=== PATIENT | female | born 1945 | race Caucasian/White ===

== ENCOUNTER 2019-04-03 16:22 | Inpatient (IN) | payer MEDICARE, MEDICAID ==
[~2019-04-03] VITALS: Ht 160 cm; Wt 108.2 kg
[2019-04-03] VITALS (218 sets, daily range): BP systolic 106; BP diastolic 55; PULSE 69; TEMP 98.4; O2SAT 90–98
[~2019-04-03 16:22] MED LIST: ALLERGY MED; ALLERGY RELIEF10 M1 PO; ALLERGY1 TAB SL; ATORVASTATIN; BENADRYL25 M2 PO; BENAZEPRIL PO; EPA/GLA1 SGL PO; FLONASE NASAL S16 GM NS; FLUOXETINE20 MG PO; HTN MED; HYDR PO; LIPITOR 10MG10 MG PO; LORTAB 5/500 501 TAB PO; MOBIC7.5 MG PO; PROZAC 10MG10 MG PO; PROZAC10 MG PO; THIOTHIXENE5 MG PO; ULTRAM 50MG TAB50 MG PO; VERELAN180 MG PO; ZITHROMAX Z PA250 MG PO
[2019-04-03 17:11] LABS: BASO # 0.1 (0.0-0.2); BASO % 0.7 % (0.0-2.0); EOS # 0.1 (0.0-0.7); EOS % 1.2 % (0-4.0); GRAN % 68.5 % (42.2-75.2); HEMOGLOBIN 11.6 g/dl (12.5-16.0); LYMPH # 1.4 (1.2-3.4); LYMPH % 19.6 % (20.0-51.0); MEAN CELL VOLUME 89 fl (80.0-100.0); MEAN CORPUSCULAR HEMOGLOBIN 29 pg (27.0-31.0); MEAN CORPUSCULAR HGB CONC 33 g/dl (33.0-37.0); MEAN PLATELET VOLUME 9.9 fl (7.4-10.4); MONO # 0.7 (0.1-0.6); MONO % 9.7 % (1.7-9.3); PLATELET COUNT 251 K/mm3 (130-400); RED BLOOD COUNT 4.01 M/mm3 (4.10-5.30); REDCELL DISTRIBUTION WIDTH-CV 12.8 % (11.5-14.5)
[2019-04-03 17:16] LABS: ALBUMIN 3.6 gm/dL (3.5-5.0); BILIRUBIN,TOTAL 0.3 mg/dL (0.0-1.0); C-REACTIVE PROTEIN 4.8 mg/dL (0.0-0.9); CALCIUM 9.2 mg/dL (8.4-10.2); CREATININE, serum 0.86 (0.52-1.25); POTASSIUM 3.9 mmol/L (3.4-5.0); TOTAL PROTEIN 6.8 gm/dL (6.4-8.2)
[2019-04-03 17:22] LABS: HEMATOCRIT 35.7 % (37.0-47.0)
[2019-04-03 17:26] LABS: TROPONIN-I 0.113 ng/mL (0.000-0.035)
[2019-04-03 17:30] LABS: COLLECTION METHOD CLEAN CATCH
[2019-04-03] MEDS ORDERED: PROZAC 20MG20 MG (17:42)
[2019-04-03 17:43] LABS: MUCOUS Present /lpf; PH 6 (5-8); SQUAMOUS EPITHELIAL 0-2 /hpf; URINE APPEARANCE Hazy; URINE BACTERIA Rare /hpf; URINE BILIRUBIN Negative (NEGATIVE); URINE BLOOD Negative (NEGATIVE); URINE COLOR Amber; URINE GLUCOSE Negative (NEGATIVE); URINE KETONE Negative (NEGATIVE); URINE LEUKOCYTE ESTERASE 2+ (NEGATIVE); URINE NITRATE Negative (NEGATIVE); URINE PROTEIN(semi-quant) 1+ (NEGATIVE); URINE UROBILINOGEN >=4.0 mg/dL (NEGATIVE)
[2019-04-03] MEDS ORDERED: ZESTRIL 5MG5 MG (17:43)
[2019-04-03] MEDS ORDERED: RISPERDAL2 MG (17:43)
[2019-04-03] MEDS ORDERED: PROZAC40 MG (17:45)
[2019-04-03] MEDS ORDERED: RISPERDAL4 MG (17:46)
[2019-04-03 17:48] LABS: INR 1.2 (0.8-3.0); PROTHROMBIN TIME 13.2 SECONDS (9.7-12.8)
[2019-04-03] MEDS ORDERED: ZESTORETIC 12.51 TAB (17:48)
--- NOTE | 2019-04-03 20:59 | NUR ---
PT IS A&O X4. PT LIVES AT HOME ALONE. PT STATES HER EMERGENCY CONTACT AND SUPPORT SYSTEM IS GRECIA AT [facility] WHO IS HER INSTALLATION DRAFTER. PT STATES SHE HAS NO FAMILY FOR A SUPPORT SYSTEM. PT STATES SHE CAME TO ER TODAY TO FINALLY FIGURE OUT WHY SHE WAS HAVING INCREASED PAIN IN HER HERNIA WHEN SHE ATE. PT IS NOT COMPLAINING OF ANY ABD/HERNIA PAIN AT PRESENT, BUT IS C/O CONSTANT PELVIC PAIN RATING 5/10 DESCRIBED "SQUEEZING PRESSURE". PT STATES IT HAS BEEN ONGOING FOR OVER A YEAR AND WORSE IN THE PAST 4 MONTHS, BUT HAS AN APPOINTMENT NEXT FRIDAY WITH HER PRIMARY FOR A PELVIC EXAM. PT DENIES ODOR OR DISCHARGE. PT DOES HAVE A LESION ON RIGHT HAND THAT IS ASYMMETRICAL, PINK IN COLOR, AND RAISED. THE LESION HAS BEEN THERE FOR >1 YR. PT STATES HER PRIMARY GAVE HER OINTMENT TO APPLY TO THE AREA.
[2019-04-04] VITALS (719 sets, daily range): BP systolic 100–139; BP diastolic 60–84; PULSE 67–88; TEMP 97.6–99.1; O2SAT 78–100
--- NOTE | 2019-04-04 00:01 | NUR ---
CALLED LAB TO SEE WHEN THEY WOULD BE ARRIVING FOR LAB DRAW. WAS INFORMED 5 MINUTES. HEPARIN GTT PAUSED.
--- NOTE | 2019-04-04 00:13 | NUR ---
CALLED LAB TO SEE WHEN THEY WOULD COME TO DRAW LAB. WAS INFORMED IT WOULD BE APPROXIMATELY 5 MINUTES. HEPARIN GTT RESUMED AND INFORMED LAB TO CALL WHEN THEY ARE ON THE WAY.
[2019-04-04 04:59] LABS: BASO % 0.6 % (0.0-2.0); EOS # 0.2 (0.0-0.7); EOS % 2.2 % (0-4.0); GRAN # 4.2 (1.4-6.5); GRAN % 63.2 % (42.2-75.2); HEMATOCRIT 34.2 % (37.0-47.0); HEMOGLOBIN 11.1 g/dl (12.5-16.0); LYMPH # 1.6 (1.2-3.4); LYMPH % 23.8 % (20.0-51.0); MEAN CELL VOLUME 89 fl (80.0-100.0); MEAN CORPUSCULAR HEMOGLOBIN 29 pg (27.0-31.0); MEAN CORPUSCULAR HGB CONC 33 g/dl (33.0-37.0); MEAN PLATELET VOLUME 9.8 fl (7.4-10.4); MONO # 0.7 (0.1-0.6); MONO % 10.1 % (1.7-9.3); PLATELET COUNT 248 K/mm3 (130-400); RED BLOOD COUNT 3.85 M/mm3 (4.10-5.30); REDCELL DISTRIBUTION WIDTH-CV 12.8 % (11.5-14.5)
[2019-04-04 05:10] LABS: CALCIUM 9.1 mg/dL (8.4-10.2); CHOLESTEROL RISK RATIO 4.8; CREATININE, serum 0.74 (0.52-1.25)
[2019-04-04 05:23] LABS: TROPONIN-I 0.092 ng/mL (0.000-0.035)
--- NOTE | 2019-04-04 07:53 | NUR ---
Shift assessment complete at this time. Plan of care reviewed at bedside with patient. Additional time taken to address any other needs or concerns. Vitals stable at this time. Denies pain or any other discomfort. Bed in low position, call light within reach. Heparin gtt continues per order. Will continue to monitor.
--- NOTE | 2019-04-04 12:00 | NUR ---
Pt resting in bed. Reports slightly increasing pelvic pain that is cramp-like in nature. Vitals stable. Pt denies any other complaints or discomfort. Will contact provider for orders regarding pain medication as none are ordered in the EMAR. Bed in low position, will continue to monitor, call light within reach.
--- NOTE | 2019-04-04 12:34 | NUR ---
Patient lives at home alone in [place], [place] and plans to return home upon discharge. Patient is mostly independent with daily living activities however, she does have a history of mental health diagnosis including schizophrenia and depression and she has a [employer] Coordinator (Penny) who is supportive of the patient's care/needs. Patient has no durable medical equipment anticipated needs, her primary care physician is Bright Olson, her pharmacy is [facility], and she does have advance directives completed. Patient's brother (Kaylie) is supportive as needed. No further needs at this time and social research assistant will follow as needed.
--- NOTE | 2019-04-04 16:00 | NUR ---
Pt resting comfortably in bed. Denies pain or any other discomfort. Vitals stable at this time. Bed in low position, call light within reach.
--- NOTE | 2019-04-04 18:55 | NUR ---
Bedside report received from Anish GOINS.
--- NOTE | 2019-04-04 19:06 | NUR ---
Bedside report given to BRISEIDA Reilly.
[2019-04-05] VITALS (376 sets, daily range): BP systolic 97–177; BP diastolic 53–88; PULSE 66–76; TEMP 97.6–98.7; O2SAT 54–99
--- NOTE | 2019-04-05 00:30 | NUR ---
Pt resting in bed at this time. Denies any needs or wants.
--- NOTE | 2019-04-05 06:45 | NUR ---
Pt assisted to laborer shipyard for procedure assisted by laborer shipyard RN. Consent signed.
--- NOTE | 2019-04-05 07:15 | NUR ---
Report provided to Jing Noel RN. Pt not currently on the unit.
--- NOTE | 2019-04-05 07:22 | NUR ---
SEE MERGE REPORT FOR MEDICATION ADMINISTRATION TIMES WELL INTRA/POST SEDATION ASSESSMENTS.
--- NOTE | 2019-04-05 08:05 | NUR ---
Report received from Elmer, analytical lab analyst RN. Pt arrived to ICU bed 3 via bed. Pt A/Ox4. Denies any pain. Right wrist with TR band on. No bleeding, no hematoma, right radial pulse +2. Pt on 4L/NC. Discussed plan of care r/t post cardiac cath checks. Pt verbalized understanding. Call light in reach.
--- NOTE | 2019-04-05 09:22 | NUR ---
Doctor inquired if SW could find out which provide patient sees at [facility]. SW contacted [place] and they reported that patient is seen by Jud Griffin and has a scheduled appointment for 04/14. SW reported this information back to nurse and doctor.
[2019-04-05] MEDS ORDERED: ZESTRIL 5MG5 MG PO (09:29)
[2019-04-05] MEDS ORDERED: HCTZ12.5TAB PO (09:30)
[2019-04-05] MEDS ORDERED: RISPERDAL2 MG PO (09:31)
[2019-04-05] MEDS ORDERED: ASPIRIN 81M81 MG/TA2 PO (09:34)
[2019-04-05] MEDS ORDERED: TOPROL XL 25MG25 MG PO (10:53)
[2019-04-05] MEDS ORDERED: PRINIVIL2.5 MG PO (10:56)
--- NOTE | 2019-04-05 11:22 | NUR ---
3cc air taken out of right wrist TR band. No bleeding from radial site.
--- NOTE | 2019-04-05 11:30 | NUR ---
2 cc of air taken out of right TR band. Right radial site soft, no bleeding. VSS.
--- NOTE | 2019-04-05 11:46 | NUR ---
3cc of air taken out of right TR band. No bleeding form right radial site. Pt denies any pain. VSS.
--- NOTE | 2019-04-05 12:08 | NUR ---
3 cc of air taken out of right TR band. No bleeding from right radial site, area soft.
--- NOTE | 2019-04-05 12:25 | NUR ---
3 cc of air taken out of right TR band. No bleeding, area soft on right radial site.
--- NOTE | 2019-04-05 12:57 | NUR ---
2cc of air taken out of right TR band. No bleeding, area soft. VSS.
--- NOTE | 2019-04-05 14:00 | NUR ---
Right radial TR band off. Radial site covered with bandaid. NO bleeding or hematoma noted from site.
--- NOTE | 2019-04-05 14:30 | NUR ---
Discharged instructions, med list, follow up appointments, and holter monitor discussed with pt. Pt verbalized understanding and discharge papers signed by pt. Patience from RT in room to apply the holter monitor. Pt called for ride home.
--- NOTE | 2019-04-05 14:45 | NUR ---
Pt discharged from ICU. Pt left unit via WC to ER entrance. Pt's ride at entrance to pick pt up.
== END 2019-04-05 14:45 | disposition home or self-care (01) | DRG 282 ==
LOC: COL.ER 16:22 → ICU 18:08
PROVIDERS: Emergency Medicine; Nurse Practitioner; ADMIT Hospitalist
PROC: B2111ZZ Fluoroscopy of Multiple Coronary Arteries using Low Osmolar Contrast (ICD-10-PCS; principal; 2019-04-05)
PROC: 4A023N7 Measurement of Cardiac Sampling and Pressure, Left Heart, Percutaneous Approach (ICD-10-PCS; principal; 2019-04-05)
DX: I21.4 Non-ST elevation (NSTEMI) myocardial infarction (principal); R06.02 Shortness of breath; I10 Essential (primary) hypertension; E78.5 Hyperlipidemia, unspecified; F20.9 Schizophrenia, unspecified; E66.9 Obesity, unspecified; M79.604 Pain in right leg
CPT/HCPCS: 99223-AI; 99239; A4216; J0696; J1644; J2250; J3010; Q9967

== ENCOUNTER 2019-04-26 14:52 | Inpatient (IN) | payer MEDICARE, MEDICAID ==
[~2019-04-26] VITALS: Ht 162.6 cm; Wt 103.3 kg
[~2019-04-26 14:52] MED LIST changes: +ASPIRIN 81M81 MG/TA2 PO; +HCTZ12.5TAB PO; +PRINIVIL2.5 MG PO; +PROZAC 20MG20 MG; +PROZAC40 MG PO; +RISPERDAL2 MG; +RISPERDAL2 MG PO; +RISPERDAL4 MG; +TOPROL XL 25MG25 MG PO; +ZESTORETIC 12.51 TAB; +ZESTRIL 5MG5 MG; +ZESTRIL 5MG5 MG PO
[2019-04-26 15:34] LABS: BASO % 0.5 % (0.0-2.0); EOS % 0.3 % (0-4.0); GRAN # 6.3 (1.4-6.5); GRAN % 72.5 % (42.2-75.2); HEMOGLOBIN 10.7 g/dl (12.5-16.0); LYMPH # 1.4 (1.2-3.4); MEAN CELL VOLUME 88 fl (80.0-100.0); MEAN CORPUSCULAR HEMOGLOBIN 28 pg (27.0-31.0); MEAN CORPUSCULAR HGB CONC 32 g/dl (33.0-37.0); MEAN PLATELET VOLUME 9.8 fl (7.4-10.4); MONO # 0.9 (0.1-0.6); MONO % 10.4 % (1.7-9.3); PLATELET COUNT 318 K/mm3 (130-400); RED BLOOD COUNT 3.77 M/mm3 (4.10-5.30); REDCELL DISTRIBUTION WIDTH-CV 13.2 % (11.5-14.5)
[2019-04-26 15:36] LABS: HEMATOCRIT 33.2 % (37.0-47.0)
[2019-04-26 15:48] LABS: ALBUMIN 3.7 gm/dL (3.5-5.0); BILIRUBIN,TOTAL 0.4 mg/dL (0.0-1.0); C-REACTIVE PROTEIN 7.2 mg/dL (0.0-0.9); CALCIUM 9.5 mg/dL (8.4-10.2); CREATININE, serum 0.7 (0.52-1.25); POTASSIUM 4.4 mmol/L (3.4-5.0)
[2019-04-26 15:57] LABS: TROPONIN-I 0.015 ng/mL (0.000-0.035)
[2019-04-26 17:14] LABS: INR 1.2 (0.8-3.0); PROTHROMBIN TIME 13.6 SECONDS (9.7-12.8)
[2019-04-26 17:17] LABS: PARTIAL THROMBOPLASTIN TIME 26.3 SECONDS (26.0-37.0)
--- NOTE | 2019-04-26 17:42 | NUR ---
received report from BRISEIDA Rodriguez.
--- NOTE | 2019-04-26 17:54 | NUR ---
pt arrive to room 307 via wheelchair.pt oriented to room.
[2019-04-26] MEDS ORDERED: PRILOSEC 20MG20 MG PO (18:01)
[2019-04-26] MEDS ORDERED: TYLENOL 500MG500 MG PO (18:03)
[2019-04-26 18:05] VITALS: BP 132/76; PULSE 80; TEMP 97.7
[2019-04-26 19:07] VITALS: BP 136/91; PULSE 79; TEMP 97.4
[2019-04-26 19:10] VITALS: BP 106/66; PULSE 97; TEMP 98
--- NOTE | 2019-04-26 19:22 | NUR ---
Assessment complete.patient awake,a/ox3.denies pain or discomfort at this time.LSCTA.right AC INT CDI.vss.pt on room air.denies SOB.d-dimer elevated.pulses palpable,abd soft and non tender to touch.BS active.health promoter equal.patient denies any other concerns at this time.will continue to monitor.call light in reach
--- NOTE | 2019-04-26 19:25 | NUR ---
report given to BRISEIDA Escalona.
--- NOTE | 2019-04-26 22:38 | NUR ---
Patient assessed around 2029. Denied having pain and discomfort. Alert and oriented, and able to make needs known. NS started and running at 75 ml/hr to peripheral IV to right AC. Site is without redness, warmth, swelling, and pain. Coban placed around area to stop for occluding. LS CTA. Denies having SOB and dyspnea. Denies chest pain. HRR. BSAx4. Non pitting edema to BLE. Voices no needs or concerns at this time. Resting in bed, laying awake in bed trying to sleep at this time. Call light is within reach.
[2019-04-26 23:26] VITALS: BP 137/79; PULSE 79; TEMP 98
[2019-04-27 03:15] VITALS: BP 136/81; PULSE 80; TEMP 98.6
--- NOTE | 2019-04-27 03:37 | NUR ---
Patient has been concerned about her bowels. Took prune juice, which has not helped patient have a bowel movement yet. Reports last BM was yesterday. BSAx4. Abdomen round, soft and non-tender. States she feels bloated. NS continues to run to IV site in right AC at 75 ml/hr per orders. Continues to deny having chest pain and SOB. Remains above 92% on room air. Patient has been awake most of the night, but trying to get some sleep. Voices no other needs or concerns at this time. Call light is within reach.
--- NOTE | 2019-04-27 03:45 | NUR ---
Patient had a large, soft formed, brown BM. Reports she is no longer feelings bloated and stomach is feeling "much better." Voices no other needs or concerns at this time.
[2019-04-27 05:53] LABS: BASO % 0.4 % (0.0-2.0); EOS # 0.1 (0.0-0.7); EOS % 0.9 % (0-4.0); GRAN # 6.7 (1.4-6.5); GRAN % 70.9 % (42.2-75.2); HEMOGLOBIN 11.1 g/dl (12.5-16.0); LYMPH # 1.6 (1.2-3.4); LYMPH % 16.9 % (20.0-51.0); MEAN CELL VOLUME 88 fl (80.0-100.0); MEAN CORPUSCULAR HEMOGLOBIN 28 pg (27.0-31.0); MEAN CORPUSCULAR HGB CONC 32 g/dl (33.0-37.0); MEAN PLATELET VOLUME 9.8 fl (7.4-10.4); MONO % 10.5 % (1.7-9.3); PLATELET COUNT 368 K/mm3 (130-400); RED BLOOD COUNT 3.91 M/mm3 (4.10-5.30); REDCELL DISTRIBUTION WIDTH-CV 13.2 % (11.5-14.5)
[2019-04-27 05:54] LABS: HEMATOCRIT 34.5 % (37.0-47.0)
[2019-04-27 06:06] LABS: ALBUMIN 3.6 gm/dL (3.5-5.0); BILIRUBIN,TOTAL 0.3 mg/dL (0.0-1.0); CALCIUM 9.4 mg/dL (8.4-10.2); CREATININE, serum 0.65 (0.52-1.25); MAGNESIUM 1.9 mg/dL (1.6-2.3); POTASSIUM 4.5 mmol/L (3.4-5.0)
[2019-04-27 07:00] VITALS: BP 136/89; PULSE 97; TEMP 98.3
--- NOTE | 2019-04-27 07:01 | NUR ---
Report given to first shift nurse.
--- NOTE | 2019-04-27 08:57 | NUR ---
Pt assessment complete. Pt is A/O x3, but is forgetful and asks the same question frequently. Pt denies any pain. No SOB. Pt states she ate some pudding this morning but is nervous to eat more d/t constipation. Pt had large soft BM overnight. POC discussed with patient who will remain NPO until CT scan. Pt in the shower at this time. SW notified patient would like [place] to be aware she is in the hospital. Call light within reach. Will continue to monitor.
--- NOTE | 2019-04-27 10:23 | NUR ---
social welfare research worker contacted Dr Olson's nurse, Chata Quesada, and confirmed that patient was seen in their office on 04/13/19 and 04/20/19. Chata Quesada stated that their office set up [facility] upon discharge from hospital on 04/05/19.
[2019-04-27 11:20] VITALS: BP 137/84; PULSE 79; TEMP 98.1
--- NOTE | 2019-04-27 11:22 | NUR ---
First visit from the pull out operator. No needs right now.
--- NOTE | 2019-04-27 13:11 | NUR ---
Pt down to CT scan at this time.
--- NOTE | 2019-04-27 13:30 | NUR ---
Pt back from CT scan at this time.
[2019-04-27] MEDS ORDERED: XARELTO STARTER20 MG PO (13:59)
--- NOTE | 2019-04-27 15:32 | NUR ---
SW met with the patient to discuss discharge plan and to complete the Re-admission Patient Interview. The patient lives alone in [place]. She states that she has a brother, Kaylie, that lives in [place], but that she does not bother him because he cannot hear very well. She states she receives support from her senior case manager, Penny, from [facility]. The patient reports that things had been going well, but that there was a medication mix-up and that they had found a blood clot on her lung. The patient reports that she needs assistance with bathing and has a cane. She states that she receives home health services from [facility] and that they help with bathing. SW contacted and confirmed that the patient has home health services for fpc/PT/OT from Joe at [facility]. The patient's PCP is Dr. Bright Olson and she receives her medications by delivery from [facility]. She reports no difficulties obtaining her meds. The patient does not have advanced directives and she was not interested in completing them at this time. The patient plans to return home upon discharge and resume home health through [facility] upon discharge. SW to continue to follow.
--- NOTE | 2019-04-27 17:07 | NUR ---
The patient is to discharge back home today, 04/27, with home health services for prison/PT/OT through [facility]. No additional needs at this time.
--- NOTE | 2019-04-27 17:11 | NUR ---
Discharge paperwork and instructions reviewed with patient. All questions answered at this time. IV to RAC dc'd, catheter tip intact. Pt wheeled out at this time.
[2019-04-29] MEDS ORDERED: ASPIRIN E.C. 8181 MG PO (13:33)
[2019-04-29] MEDS ORDERED: ZESTRIL2.5 MG PO (13:34)
[2019-04-29] MEDS ORDERED: TOPROL XL 25MG25 MG PO (13:45)
[2019-04-29] MEDS ORDERED: RISPERDAL2 MG PO (13:45)
== END 2019-04-27 17:12 | disposition home or self-care (01) | DRG 175 ==
LOC: COL.ER 14:52 → MEDICAL 17:27
PROVIDERS: Emergency Medicine; ADMIT Internal Medicine
DX: I26.99 Other pulmonary embolism without acute cor pulmonale (principal); I21.4 Non-ST elevation (NSTEMI) myocardial infarction; E87.1 Hypo-osmolality and hyponatremia; I10 Essential (primary) hypertension; E78.5 Hyperlipidemia, unspecified; K82.9 Disease of gallbladder, unspecified; F20.9 Schizophrenia, unspecified; E66.9 Obesity, unspecified; I44.7 Left bundle-branch block, unspecified; D64.9 Anemia, unspecified; R16.0 Hepatomegaly, not elsewhere classified; Z79.82 Long term (current) use of aspirin
CPT/HCPCS: 99222-AI; 99239; J1650; J7030; Q9967

== ENCOUNTER → 2019-05-04 | Outpatient (CLI) | payer MEDICARE, MEDICAID ==
[~2019-05-04] VITALS: Ht 162.6 cm; Wt 100.8 kg
[2019-05-04] VITALS (8 sets, daily range): BP systolic 95–143; BP diastolic 60–77; PULSE 78–95
[~2019-05-04] MED LIST changes: +ASPIRIN E.C. 8181 MG PO; +PRILOSEC 20MG20 MG PO; +TYLENOL 500MG500 MG PO; +XARELTO STARTER20 MG PO; +XARELTO2.5 MG PO; +ZESTRIL2.5 MG PO
[2019-05-04 11:59] LABS: INR 1.1 (0.8-3.0)
--- NOTE | 2019-05-04 13:10 | NUR ---
PT TAKEN TO CT ROOM IN WHEELCHAIR. PT UP TO CT BED. POSITIONED AND MONITORING EQUIPMENT PLACED ON PT.
--- NOTE | 2019-05-04 13:15 | NUR ---
PROCEDURE COMPLETED. MONITORING EQUIPMENT REMOVED AND PT ASSISTED TO WHEELCHAIR.
--- NOTE | 2019-05-04 15:03 | NUR ---
pt was taken to [facility] and was able to transfer self easily
== END ==
LOC: COL.RAD 09:00
PROVIDERS: Internal Medicine
DX: K82.9 Disease of gallbladder, unspecified (principal); K76.89 Other specified diseases of liver; R59.0 Localized enlarged lymph nodes
CPT/HCPCS: 32109

== ENCOUNTER 2019-05-14 15:45 | Emergency (ER) | payer MEDICARE, MEDICAID ==
[~2019-05-14] VITALS: Ht 162.6 cm; Wt 99.1 kg
[2019-05-14 15:49] VITALS: TEMP 97.8
[2019-05-14 17:48] LABS: BASO % 0.3 % (0.0-2.0); EOS % 0.2 % (0-4.0); GRAN # 10.7 (1.4-6.5); GRAN % 86.7 % (42.2-75.2); LYMPH # 0.8 (1.2-3.4); LYMPH % 6.1 % (20.0-51.0); MEAN CELL VOLUME 88 fl (80.0-100.0); MEAN CORPUSCULAR HEMOGLOBIN 28 pg (27.0-31.0); MEAN CORPUSCULAR HGB CONC 32 g/dl (33.0-37.0); MEAN PLATELET VOLUME 9.6 fl (7.4-10.4); MONO # 0.8 (0.1-0.6); MONO % 6.2 % (1.7-9.3); PLATELET COUNT 424 K/mm3 (130-400); RED BLOOD COUNT 3.99 M/mm3 (4.10-5.30); REDCELL DISTRIBUTION WIDTH-CV 13.2 % (11.5-14.5)
[2019-05-14 17:51] LABS: HEMATOCRIT 34.9 % (37.0-47.0)
[2019-05-14 18:06] LABS: ALANINE AMINOTRANSFERASE 32 U/L (9-52); ALBUMIN 3.7 gm/dL (3.5-5.0); ALKALINE PHOSPHATASE 410 U/L (50-136); AST,SGOT 86 U/L (15-37); BILIRUBIN,TOTAL 0.4 mg/dL (0.0-1.0); BLOOD UREA NITROGEN 20 mg/dL (7-17); CALCIUM 9.9 mg/dL (8.4-10.2); CARBON DIOXIDE 27 mmol/L (22-30); CREATININE, serum 0.95 (0.52-1.25); GLUCOSE 132 mg/dL (74-106); LIPASE 44 U/L (23-300); POTASSIUM 4.3 mmol/L (3.4-5.0); SODIUM 134 mmol/L (137-145); TOTAL PROTEIN 7.5 gm/dL (6.4-8.2)
[2019-05-14 18:18] LABS: ACETAMINOPHEN < 10 ug/mL (10-30); C-REACTIVE PROTEIN 14.2 mg/dL (0.0-0.9); CHLORIDE 94 mmol/L (98-107); TROPONIN-I < 0.012 ng/mL (0.000-0.035)
[2019-05-14 18:19] LABS: ANION GAP 13 mmol/L (7-16)
[2019-05-14 19:18] LABS: COLLECTION METHOD CLEAN CATCH
[2019-05-14 19:52] LABS: HYALINE CAST >12 /lpf; MUCOUS Present /lpf; PH 5 (5-8); SQUAMOUS EPITHELIAL 0-2 /hpf; URINE APPEARANCE Hazy; URINE BACTERIA None Seen /hpf; URINE BILIRUBIN Negative (NEGATIVE); URINE BLOOD Negative (NEGATIVE); URINE COLOR Yellow; URINE GLUCOSE Negative (NEGATIVE); URINE KETONE Negative (NEGATIVE); URINE LEUKOCYTE ESTERASE 1+ (NEGATIVE); URINE NITRATE Negative (NEGATIVE); URINE PROTEIN(semi-quant) Negative (NEGATIVE); URINE RBC 0-2 /hpf
[2019-05-14 22:13] VITALS: BP 125/79; PULSE 74
== END 2019-05-14 22:13 | disposition short-term general hospital (02) ==
LOC: COL.ER 15:45
PROVIDERS: Emergency Medicine
DX: C22.9 Malignant neoplasm of liver, not specified as primary or secondary (principal); I10 Essential (primary) hypertension; Z86.711 Personal history of pulmonary embolism; Z79.51 Long term (current) use of inhaled steroids; Z79.82 Long term (current) use of aspirin
CPT/HCPCS: J2405; J3010; J7030

== ENCOUNTER → 2019-05-15 | Outpatient (CLI) | payer MEDICARE, MEDICAID ==
[2019-05-15 01:30] LABS: ALBUMIN 3.5 gm/dL (3.5-5.0); BILIRUBIN,TOTAL 0.4 mg/dL (0.0-1.0); CALCIUM 9.9 mg/dL (8.4-10.2); CREATININE, serum 0.78 (0.52-1.25); TOTAL PROTEIN 6.7 gm/dL (6.4-8.2)
== END ==
LOC: ZCOL.LAB 01:23
PROVIDERS: Nurse Practitioner Family
DX: E87.1 Hypo-osmolality and hyponatremia (principal)

== ENCOUNTER 2019-05-24 13:14 | Emergency (ER) | payer MEDICARE, MEDICAID ==
[~2019-05-24] VITALS: Ht 160 cm; Wt 103.2 kg
[2019-05-24 13:22] VITALS: TEMP 97.5
[2019-05-24 13:55] LABS: BASO % 0.3 % (0.0-2.0); EOS % 0.2 % (0-4.0); GRAN % 81.3 % (42.2-75.2); LYMPH % 9.2 % (20.0-51.0); MEAN CELL VOLUME 86 fl (80.0-100.0); MEAN CORPUSCULAR HGB CONC 32 g/dl (33.0-37.0); MEAN PLATELET VOLUME 10.3 fl (7.4-10.4); MONO % 8.6 % (1.7-9.3); PLATELET COUNT 288 K/mm3 (130-400); RED BLOOD COUNT 3.17 M/mm3 (4.10-5.30); REDCELL DISTRIBUTION WIDTH-CV 13.4 % (11.5-14.5)
[2019-05-24 13:56] LABS: HEMATOCRIT 27.2 % (37.0-47.0); HEMOGLOBIN 8.7 g/dl (12.5-16.0); MEAN CORPUSCULAR HEMOGLOBIN 27 pg (27.0-31.0)
[2019-05-24 13:58] LABS: INR 1.8 (0.8-3.0); PROTHROMBIN TIME 20.8 SECONDS (9.7-12.8)
[2019-05-24 14:08] LABS: ALBUMIN 3.2 gm/dL (3.5-5.0); BILIRUBIN,TOTAL 0.5 mg/dL (0.0-1.0); CALCIUM 9.9 mg/dL (8.4-10.2); CREATININE, serum 0.64 (0.52-1.25); POTASSIUM 4.3 mmol/L (3.4-5.0); TOTAL PROTEIN 6.5 gm/dL (6.4-8.2)
[2019-05-24 14:20] LABS: TROPONIN-I 0.171 ng/mL (0.000-0.035)
[2019-05-24 14:21] LABS: C-REACTIVE PROTEIN 15.8 mg/dL (0.0-0.9)
--- NOTE | 2019-05-24 15:17 | NUR ---
SW was called by ED nurse to meet with patient because patient reported she is unable to care for herself at home. SW met with patient to discuss this issue. Patient reports she was previously admitted to [facility] in [place] for a week and was discharged home on Tuesday 05/22. Patient does have home health nursing/PT/OT through [facility] but she reports she has not seen them because she was in the hospital. Patient also reported she has little family support. Patient's brother is disabled and she does not speak to her sister. Patient reports her main support it Penny from [facility]. Patient also has meals on wheels but she was not provided meals this weekend due to being in the hospital. Patient also reported she does not think she is strong enough to walk around at home and care for herself but she does not want rehab. SW explained that PT/OT can help patient regain strength and mobility so she is able to care for herself at home. Patient reported she did not voice these concerns to any of the [facility] staff before being discharged this past weekend. SW encouraged patient to work with PT/OT. SW inquired if patient would be agreeable to SNF if that is recommended. Patient reports she would be agreeable to SNF for post acute rehab. SW was informed that patient will likely be admitted. SW will follow up with patient to ensure a safe discharge plan. If patient is not admitted today, SHERYL will follow up in the ED about placement options.
[2019-05-24 15:27] LABS: COLLECTION METHOD CLEAN CATCH
[2019-05-24 15:33] LABS: PH 7 (5-8); SQUAMOUS EPITHELIAL 0-2 /hpf; URINE APPEARANCE Clear; URINE BACTERIA None Seen /hpf; URINE BILIRUBIN Negative (NEGATIVE); URINE BLOOD Negative (NEGATIVE); URINE COLOR Yellow; URINE GLUCOSE Negative (NEGATIVE); URINE KETONE Negative (NEGATIVE); URINE LEUKOCYTE ESTERASE Trace (NEGATIVE); URINE NITRATE Negative (NEGATIVE); URINE PROTEIN(semi-quant) Negative (NEGATIVE); URINE RBC 0-2 /hpf
[2019-05-24 21:28] VITALS: BP 155/91; PULSE 80
--- NOTE | 2019-05-25 15:01 | NUR ---
SHERYL spoke with Cyn, long term care social worker at [facility], about the conversation with patient in the ED. SHERYL explained that patient does not have very much family/friend support outside of her community case manager, Penny, at [facility]. SW provded Penny's phone number to Cyn. SHERYL also reported that after speaking with patient about the benefits of PT and OT, patient is agreeable to SNF if it is recommended.
== END 2019-05-24 21:40 | disposition short-term general hospital (02) ==
LOC: COL.ER 13:14
PROVIDERS: Emergency Medicine
DX: N39.0 Urinary tract infection, site not specified (principal); R07.89 Other chest pain; F20.9 Schizophrenia, unspecified; K76.89 Other specified diseases of liver; R79.89 Other specified abnormal findings of blood chemistry; I10 Essential (primary) hypertension; Z79.01 Long term (current) use of anticoagulants; Z79.82 Long term (current) use of aspirin; Z79.51 Long term (current) use of inhaled steroids
CPT/HCPCS: J2543; J3010; J7030; Q9967